=== PATIENT | female | born 1935 | race Caucasian/White ===

== ENCOUNTER 2016-08-24 14:37 | Inpatient (IN) | payer MEDICARE, BC ==
[2016-08-24] MEDS ORDERED: NS + KCl 20mEq/L 1,000 ML IV SCH (15:00)
[2016-08-24] MEDS: Sodium Chloride 1 GM Tab PO SCH ×2 (15:28→20:23)
[2016-08-24] MEDS: Potassium Chloride 20 MEQ Tab.ER PO SCH (15:28)
[2016-08-24] MEDS ORDERED: Nitroglycerin 0.4 MG Tab.SL SL PRN (19:00)
[2016-08-24] MEDS ORDERED: Lidocaine 2% 100 MG/5 ML Syringe IVPUSH PRN (19:00)
[2016-08-24] MEDS ORDERED: EPINEPHrine 1:10,000 1 MG/10 ML Syringe IVPUSH PRN (19:00)
[2016-08-24] MEDS ORDERED: Atropine 0.1 MG/ML 10 ML Syringe IVPUSH PRN (19:00)
[2016-08-24] MEDS ORDERED: Sodium Chloride 0.9% 1,000 ML IV SCH (19:45)
[2016-08-24] MEDS: Calcium Citrate/Vitamin D3 315 MG-250 Unit Tab PO SCH (20:23)
[2016-08-24] MEDS: Simvastatin 20 MG Tab PO SCH (20:23)
[2016-08-24] MEDS: Aspirin 81 MG Tab.EC PO SCH (20:23)
[2016-08-24] MEDS: ALPRAZolam 0.25 MG Tab PO PRN (21:52)
[2016-08-25] MEDS: Omeprazole 20 MG Cap.CR PO SCH (06:20)
[2016-08-25 08:08] LABS: CHLORIDE,CL 94 mmol/L (98-115); SODIUM,NA 132 mmol/L (136-145)
[2016-08-25] MEDS: Sodium Chloride 1 GM Tab PO SCH (10:08)
[2016-08-25] MEDS: Potassium Chloride 20 MEQ Tab.ER PO SCH (10:08)
[2016-08-25] MEDS: Cetirizine 10 MG Tab PO SCH (10:09)
[2016-08-25] MEDS: Diclofenac Sodium 75 MG Tab.EC PO SCH ×2 (10:34)
[2016-08-25] MEDS ORDERED: Sodium Chloride 0.9% 500 ML IV SCH (11:00)
--- NOTE | 2016-08-25 12:43 | PN ---
08/25/2016 PATIENT NAME: SYLVIA CERNA CHIEF COMPLAINT: Does feel better, less weak today, sodium level improved to 132. BRIEF HISTORY: This 80-year-old female was admitted from the [facility] yesterday. She had actually came in for preoperative exam due to pending right knee total replacement. She is to have this in two weeks. However, it was noticed on her exam that she did have a low sodium of 116 with symptomatic weakness. The patient had recently returned from [place] when arising a couple of weeks ago and she had not seen a medical provider except for [facility] for chronic back pain, which she states has improved quite a bit. She does have some intermittent depression likely due to her chronic medical conditions with her knees and recent jaw surgery. She was to be started on SSRI yesterday; however, that was on hold on admission due to low sodium level. PHYSICAL EXAMINATION: VITAL SIGNS: Temperature is 97.1, orthostatics are negative, heart rate 74, blood pressure 114/68, O2 sats are 100, and respiratory rate 16. GENERAL: She is in no acute distress. She is slightly tearful this morning. Does complain of a mild cough. NECK: Normal range of motion. No thyromegaly. CARDIOVASCULAR: Regular rate and rhythm. No murmur. CHEST: Clear to auscultation. EXTREMITIES: She has no edema. LABORATORY DATA: This morning, sodium increased to 132, potassium 3.3, creatinine and BUN are normal. Calcium normal. AST, ALT, alkaline phosphatase, and albumin all normal. She is on a fluid restriction of 1000 mL per day. NSAIDs along with thiazide diuretic was held on admission. The patient stated she had this problem approximately four years ago. It appears that it was related to her thiazide diuretic at that time. She does have a history of hypertension. Thyroid was assessed in the clinic yesterday. Results are normal at 2.57. She did have a low potassium level of 3.1 with a low sodium of 116. Chest x-ray yesterday at [facility]: Lungs were clear. No pulmonary edema. Pending labs: Urine electrolytes, urine sodium, serum osmolality still pending. IMPRESSION AND PLAN: 1. 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 Continue monitoring her sodium level tomorrow. Potassium now normal. Fluid restriction 1000 mL. We will salt her food today. Hold her thiazide diuretics. Hold all NSAIDs. 2. Osteoarthritis. Discontinue all NSAIDs. Schedule Tylenol Extended Release. Add acetaminophen for osteoarthritis. 3. Hyperlipidemia. Lipid panel is pending. She is on Zocor. 4. Depression. We will hold off on SSRIs at this time. She does have some pending surgeries. She has an improved outlook. Had a long discussion with her this morning. 5. Gastroesophageal reflux disease. Continue with PPI. 6. Environmental allergies. She is on Singulair. We can discontinue her telemetry. We would like to keep the patient another overnight stay to monitor her ongoing electrolytes and labs are still pending. /[id number]/MODL
[2016-08-25] MEDS: Acetaminophen 500 MG Tab PO SCH ×2 (14:52→22:56)
[2016-08-25] MEDS ORDERED: Cholecalciferol (Vitamin D3) 1,000 Unit Tab PO SCH (21:00)
[2016-08-25] MEDS: Aspirin 81 MG Tab.EC PO SCH (21:19)
[2016-08-25] MEDS: Calcium Citrate/Vitamin D3 315 MG-250 Unit Tab PO SCH (21:20)
[2016-08-25] MEDS: Simvastatin 20 MG Tab PO SCH (21:20)
[2016-08-25] MEDS: ALPRAZolam 0.25 MG Tab PO PRN (22:24)
[2016-08-26] MEDS: Omeprazole 20 MG Cap.CR PO SCH (06:29)
[2016-08-26] MEDS: Acetaminophen 500 MG Tab PO SCH (06:29)
[2016-08-26 06:36] VITALS: BP 131/80
[2016-08-26 07:50] LABS: CHLORIDE,CL 95 mmol/L (98-115); SODIUM,NA 132 mmol/L (136-145)
[2016-08-26] MEDS: Potassium Chloride 20 MEQ Tab.ER PO SCH (08:16)
[2016-08-26] MEDS: Cetirizine 10 MG Tab PO SCH (08:16)
[2016-08-26] MEDS ORDERED: Montelukast 10 MG Tab PO PRN (09:27)
[2016-08-26] MEDS ORDERED: Denosumab 60 MG/1 ML Syringe SUBCUT SCH (09:30)
[2016-08-26] MEDS ORDERED: Diclofenac Sodium 75 MG Tab.EC PO SCH (09:30)
[2016-08-26] MEDS ORDERED: Levothyroxine 75 MCG Tab PO SCH (21:00)
--- NOTE | 2016-08-27 08:40 | DISCH ---
FINAL DIAGNOSES: 1. Hyponatremia, euvolemic, hypotonic, likely thiazide induced, rule out syndrome of inappropriate antidiuretic hormone secretion. Urine studies and serum osmolality studies still pending, they are mail outs if it is syndrome of inappropriate antidiuretic hormone secretion, likely renal component. 2. Osteoarthritis. 3. Hyperlipidemia. 4. Depression, holding off all SSRIs at this time. 5. Gastroesophageal reflux disease, continue with PPI. 6. Environmental allergies. HISTORY OF PRESENT ILLNESS: This very pleasant 80-year-old female was admitted from the [facility]. She had actually came in for preoperative physical exam due to pending right total knee replacement. She is supposed to have this in about 2 weeks. However, it was noted on exam for her to have a low sodium level around 118 with some symptomatic weakness. She has had this before a few years ago, and it was thought at that time, due to thiazide diuretics. She had recently returned from [place], and then a couple weeks ago, she had not seen a medical provider down there other than a pain clinic provider due to chronic back pain which she states has improved quite a bit. She did have some intermittent depression likely due to her chronic medical conditions and recent jaw surgery where they lacerated her side of her jaw. Due to low sodium level, she was admitted. HOSPITAL COURSE: The patient's hospital course was uneventful. She was placed on fluid restriction of 1000 mL a day. All NSAIDs were held, SSRIs were held, along with her thiazide diuretics. Her sodium level within 12 hours almost normalized at 132, it remained there. Potassium was replaced gently, it was normal on discharge at 3.5. Liver functions were normal. She had negative orthostatic vital signs; however, she was slightly low upon admission around 100 systolic. VITAL SIGNS ON DISCHARGE: Temperature 97.8, blood pressure 131/80, heart rate 78, respiratory rate 20, O2 sats 95%. Microbiology report none. Labs: TSH at [facility] was normal. Labs that are pending: Urine electrolytes, serum, urine, and osmolality studies. MEDICATION ADJUSTMENTS: All NSAIDs on hold, hold thiazide diuretics, hold SSRIs, and continue on all her other home medicines. DISPOSITION: The patient will be discharged from the hospital. She feels good. She is ready to be discharged. She is clinically stable. She will follow up with Mindy Costa next week. Continue with fluid restriction. Continue with medication adjustments as directed, report any weakness or lightheadedness with fluid restriction 1000 mL a day. She will need another preop physical next week. MEDICAL DECISION MAKIN minutes was spent on this discharge planning and process. RECOMMENDATIONS AT FOLLOWUP: Followup on labs from [facility] mail out. /[id number]/MODL
[2016-08-27] MEDS ORDERED: Non-Formulary Medication 1 Each (Ipratropium Bromide [Ipratropium Bromide] 2 SPRAY) NASBOTH SCH (09:00)
== END 2016-08-26 11:10 | disposition home or self-care (01) | DRG 641 ==
LOC: KA.MS 14:53
PROVIDERS: ADMIT Physician Assistant Medical; ATTEND Family Medicine
DX: E87.1 Hypo-osmolality and hyponatremia (principal); E78.5 Hyperlipidemia, unspecified; F32.9 Major depressive disorder, single episode, unspecified; K21.9 Gastro-esophageal reflux disease without esophagitis; E87.6 Hypokalemia; I10 Essential (primary) hypertension; M17.11 Unilateral primary osteoarthritis, right knee; M54.9 Dorsalgia, unspecified; G89.29 Other chronic pain; J30.1 Allergic rhinitis due to pollen; Z79.899 Other long term (current) drug therapy
CPT/HCPCS: 36415; 80048; 80053; 83930; 84300; A9270-GY; J3480

== ENCOUNTER 2016-10-10 12:03 | Emergency (ER) | payer MEDICARE, BC ==
[2016-10-10] MEDS ORDERED: Ondansetron 4 MG/2 ML SDV IVPUSH ONE (12:16)
[2016-10-10] MEDS ORDERED: Sodium Chloride 0.9% 1,000 ML IV ONE (12:16)
[2016-10-10 12:32] VITALS: BP 144/69
[2016-10-10 12:41] LABS: CHLORIDE,CL 99 mmol/L (98-115); SODIUM,NA 135 mmol/L (136-145)
[2016-10-10] MEDS ORDERED: Loperamide 2 MG Cap PO ONE (12:51)
[2016-10-10] MEDS ORDERED: Ondansetron 4 MG Tab.DIS ONE (13:47)
--- NOTE | 2016-10-10 13:54 | EDM.PDOC ---
ED HPI GENERAL MEDICAL PROBLEM - General Chief Complaint: Gastrointestinal Problem Stated Complaint: DIARRHEA, NAUSEA Time Seen by Provider: 10/10/16 12:20 Source of Information: Reports: Patient History Limitations: Reports: No Limitations - History of Present Illness INITIAL COMMENTS - FREE TEXT/NARRATIVE: Kelsi is a very pleasant 81-year-old female who has felt nauseated and has had continual diarrhea over the last 24-36 hours. She's been trying some Imodium without relief. She has not had much appetite states that her appetite has not been great since she's had her knee replacement. She has felt nauseated and had one episode of emesis yesterday. She has not had any further vomiting episodes. She does have a history of chronic hyponatremia and had electrolyte replacement with IV fluids and sodium prior to her surgery. She does notice a little bit abdominal cramping but denies significant pain or guarding. She denies any fever or chills. He denies chest pain or shortness of breath. He denies any sinus pressure but did have a sore throat a couple of days ago and a mild cough. She feels that this has resolved. She denies any ear fullness or pain. She felt she better come in to the ER for fluid replacement and to make sure that she does not have electrolyte imbalance. Onset: Gradual Onset Date: 10/09/16 Duration: Hour(s): Location: Reports: Abdomen Quality: Reports: Ache Severity: Moderate Improves with: Reports: Medication Worsens with: Reports: None Associated Symptoms: Reports: Loss of Appetite, Malaise, Nausea/Vomiting. 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 Medication(s) (Imodium) - Related Data Allergies Allergy/AdvReac Type Severity Reaction Status Date / Time Penicillins Allergy Other Verified 10/10/16 13:34 Home Meds: Home Meds Aspirin [Halfprin] 81 mg PO BEDTIME 08/24/16 [History] Calcium Citrate/Vitamin D2 [Mele-Citrate Plus Vitamin D Tab] 1 each PO BEDTIME [History] Cetirizine HCl [Zyrtec] 10 mg PO DAILY 08/24/16 [History] Cholecalciferol (Vitamin D3) [Vitamin D3] 2,000 unit PO BEDTIME 08/24/16 [ History] Denosumab [Prolia] 60 mg SUBCUT Q6M 08/24/16 [History] Ipratropium [facility] 2 spray NASBOTH DAILY PRN 08/24/16 [History] Levothyroxine 37.5 mcg PO BEDTIME 08/24/16 [History] Montelukast Sodium [Singulair] 10 mg PO DAILY PRN 08/24/16 [History] Omeprazole 40 mg PO ACBREAKFAST 08/24/16 [History] Simvastatin [Zocor] 20 mg PO BEDTIME 08/24/16 [History] Past Medical History 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: Musculoskeletal History: Reports: Arthritis Endocrine/Metabolic History: Reports: Hypothyroidism Other Oncologic History: skin cancer - Infectious Disease History Infectious Disease History: Reports: Measles, Mumps, Rubella - Past Surgical History HEENT Surgical History: Reports: Tonsillectomy GI Surgical History: Reports: Colonoscopy Social & Family History - Family History Family Medical History: Noncontributory - Tobacco Use Smoking Status *Q: Never Smoker - Recreational Drug Use Recreational Drug Use: No ED ROS GENERAL - Review of Systems Review Of Systems: See Below Constitutional: Reports: Malaise HEENT: Reports: Glasses. Denies: Ear Pain, Eye Pain, Sinus Problem, Throat Pain , Throat Swelling, Vertigo Respiratory: Reports: Cough. Denies: Shortness of Breath, Sputum, Hemoptysis Cardiovascular: Denies: Chest Pain, Edema, Lightheadedness, Palpitations, Syncope Endocrine: Reports: No Symptoms GI/Abdominal: Reports: Abdominal Pain (cramping), Diarrhea, Decreased Appetite, Nausea, Vomiting : Reports: No Symptoms Musculoskeletal: Reports: Joint Pain (right knee status post total knee arthroplasty), Joint Swelling (right knee) Skin: Reports: No Symptoms Neurological: Reports: No Symptoms Psychiatric: Reports: No Symptoms Hematologic/Lymphatic: Reports: Anemia Immunologic: Reports: No Symptoms ED EXAM, GI/ABD - Physical Exam Exam: See Below Exam Limited By: No Limitations General Appearance: Alert, WD/WN, No Apparent Distress Eyes: Bilateral: Normal Appearance, EOMI Ears: Normal External Exam, Normal Canal, Hearing Grossly Normal, Normal TMs Nose: Normal Inspection, Normal Mucosa, No Blood Throat/Mouth: Normal Inspection, Normal Lips, Normal Teeth, Normal Gums, Normal Oropharynx, Normal Voice, No Airway Compromise Head: Atraumatic, Normocephalic Neck: Normal Inspection, Supple. No: Lymphadenopathy (L), Lymphadenopathy (R) Respiratory/Chest: No Respiratory Distress, Lungs Clear Cardiovascular: Normal Peripheral Pulses, Regular Rate, Rhythm, Systolic Murmur GI/Abdominal: Normal Bowel Sounds, Soft, Non-Tender, No Distention, No Mass. No : Guarding, Rebound, Rigidity Extremities: Normal Inspection, No Pedal Edema, Limited Range of Motion (right knee, well-healed incision, motion coming along nicely following knee replacement) Neurological: Alert, Oriented, Normal Cognition, No Motor/Sensory Deficits Psychiatric: Normal Affect, Normal Mood Skin Exam: Warm, Dry, Intact, Normal Color, No Rash Lymphatic: No Adenopathy Course - Vital Signs Last Recorded V/S: Last Vital Signs Temp 98.6 F 10/10/16 12:05 Pulse 80 10/10/16 12:05 Resp 18 10/10/16 12:05 BP 144/69 H 10/10/16 12:05 Pulse Ox 95 10/10/16 12:05 - Orders/Labs/Meds Labs: Laboratory Tests 10/10/16 10/10/16 Range/Units 12:15 12:15 WBC 5.6 (5.0-10.0) 10^3/uL RBC 3.56 L (3.80-5.50) 10^6/uL Hgb 11.5 L (12.0-16.0) g/dL Hct 33.9 L (37.0-47.0) % MCV 95.1 H (82.0-92.0) fL MCH 32.2 H (27.0-31.0) pg MCHC 33.8 (32.0-36.0) g/dL RDW 14.3 (11.5-14.5) % Plt Count 390 H (150-300) 10^3/uL MPV 6.1 L (7.4-10.4) fL Neut % (Auto) 71.7 H (50.0-70.0) % Lymph % (Auto) 19.3 L (20.0-40.0) % Howell % (Auto) 6.9 (2.0-8.0) % Eos % (Auto) 1.6 (1.0-3.0) % Baso % (Auto) 0.5 (0.0-1.0) % Neut # (Auto) 4.0 (2.5-7.0) 10^3/uL Lymph # (Auto) 1.1 (1.0-4.0) 10^3/uL Howell # (Auto) 0.4 (0.1-0.8) 10^3/uL Eos # (Auto) 0.1 (0.1-0.3) 10^3/uL Baso # (Auto) 0.0 (0.0-0.1) 10^3/uL Sodium 135 L (136-145) mmol/L Potassium 4.0 (3.3-5.3) mmol/L Chloride 99 (98-115) mmol/L Carbon Dioxide 23.3 (21.0-32.0) mmol/L BUN 12 (6-25) mg/dL Creatinine 0.66 (0.51-1.17) mg/dL Est Cr Clr Drug Dosing TNP Estimated GFR (MDRD) > 60 mL/min Glucose 106 (70-110) mg/dL Calcium 8.8 (8.7-10.3) mg/dL Total Bilirubin 0.7 (0.2-1.0) mg/dL AST 22 (15-37) U/L ALT 18 (12-78) U/L Alkaline Phosphatase 63 (46-116) IU/L Total Protein 7.6 (6.4-8.2) g/dL Albumin 3.71 (3.00-4.80) g/dL Meds: Medications Discontinued Medications Generic Name Dose Route Start Last Admin Trade Name Marcusq PRN Reason Stop Dose Admin Sodium Chloride 1,000 mls @ 999 mls/hr 10/10/16 12:16 10/10/16 12:29 Normal Saline IV 10/10/16 13:16 999 mls/hr .BOLUS ONE Administration Loperamide HCl 4 mg 10/10/16 12:51 10/10/16 13:30 Imodium PO 10/10/16 12:52 4 mg ONETIME ONE Administration Ondansetron HCl 4 mg 10/10/16 12:16 10/10/16 12:28 Zofran IVPUSH 10/10/16 12:17 4 mg ONETIME ONE Administration - Re-Assessments/Exams Free Text/Narrative Re-Assessment/Exam: 10/10/16 14:02 Patient given 1 L of normal saline and Zofran 4 mg IV. Nausea has improved. Patient has not had the urge to feel bowel movement or stomach upset during her stay. She feels overall better with a liter of fluids and Zofran. Departure - Departure Time of Disposition: 14:03 Disposition: Home, Self-Care 01 Clinical Impression: Diarrhea, Mild dehydration - Discharge Information Instructions: Diarrhea, Adult, Viral Gastroenteritis, Adult, [id number] Referrals: Mark Rayo MD [Primary Care Provider] - Forms: ED Department Discharge Additional Instructions: 1. Imodium 2 mg tabs every 4 hours as needed for continued diarrhea. 2. Encouraged to push fluids. 3. Keep your diet [place] but encouraged to push patient to eat for nourishment. 4. Zofran 4 mg ODT as needed for nausea. 5. Followup with your primary care next week if you don't feel your symptoms are improving. - Assessment/Plan Assessment:: 1. Diarrhea 2. Mild dehydration 3. Mild gastroenteritis Plan: 1. Zofran 4 mg ODT every 6 hours when necessary for nausea 2. Continue with the home Imodium as needed for diarrhea 3. Encourage oral hydration. 4. Encouraged eating for nourishment. We discussed a bland diet such as toast and peanut butter for calories. 5. If your symptoms persist encourage followup with your primary care next week.
== END 2016-10-10 13:55 | disposition home or self-care (01) ==
LOC: KA.ED 12:03
DX: E86.0 Dehydration (principal); M19.90 Unspecified osteoarthritis, unspecified site; Z79.82 Long term (current) use of aspirin; Z79.899 Other long term (current) drug therapy; Z98.890 Other specified postprocedural states
CPT/HCPCS: 80053; 85025; 96361; 96374; 99284; A9270; J2405; J7030

== ENCOUNTER 2024-08-28 08:08 | Day surgery (SDC) | payer MEDICARE, BC ==
[~2024-08-28 08:08] MED LIST: Sodium Chloride 0.9% 10 ML Syringe FLUSH PRN
[2024-08-28] MEDS ORDERED: Rocuronium 50 MG/5 ML Vial IV ONE (08:09)
[2024-08-28] MEDS ORDERED: Succinylcholine 200 MG/10 ML MDV IV ONE (08:09)
[2024-08-28] MEDS ORDERED: Ondansetron 4 MG/2 ML SDV IV ONE (08:09)
[2024-08-28] MEDS ORDERED: fentaNYL 250 MCG/5 ML SDV ONE (08:12)
[2024-08-28] MEDS ORDERED: Dexamethasone 4 MG/ML SDV ONE (08:13)
[2024-08-28] MEDS ORDERED: Propofol 200 MG/20 ML SDV ONE (08:13)
[2024-08-28] MEDS ORDERED: Midazolam 1 MG/ML 2 ML SDV ONE (08:13)
[2024-08-28] MEDS ORDERED: Sodium Chloride 0.9% 100 ML ONE (08:13)
[2024-08-28] MEDS: Lactated Ringers 1,000 ML IV SCH (08:39)
[2024-08-28] MEDS ORDERED: ceFAZolin 1 GM Vial ONE ×2 (09:04→09:54)
[2024-08-28] MEDS ORDERED: Bupivacaine 0.5%/EPINEPHrine 1:200,000 10 ML SDV ONE ×2 (09:12→10:37)
[2024-08-28] MEDS ORDERED: Bacitracin/Neomycin/Polymyxin B Oint 0.9 GM U/D Packet ONE ×2 (09:13)
[2024-08-28] MEDS ORDERED: Lactated Ringers 1,000 ML ONE (09:46)
[2024-08-28] MEDS ORDERED: Water For Injection, Sterile 20 ML ONE (09:55)
[2024-08-28] MEDS: ceFAZolin 1 GM Vial ONE ×2 (09:58)
[2024-08-28] MEDS: Bupivacaine 0.5%/EPINEPHrine 1:200,000 50 ML MDV INFILT ONE (09:59)
[2024-08-28] MEDS: Bacitracin/Neomycin/Polymyxin B Oint 0.9 GM U/D Packet TOP ONE (10:00)
[2024-08-28] MEDS ORDERED: Sugammadex Sodium 200 MG/2 ML VIAL IV ONE (11:36)
[2024-08-28] MEDS: fentaNYL 100 MCG/2 ML SDV IVPUSH ONE (12:45)
[2024-08-28] MEDS: Acetaminophen/HYDROcodone 325-5 MG Tab PO ONE (14:37)
[2024-08-28 17:52] VITALS: BP 122/65; PULSE 82
== END 2024-08-28 15:52 | disposition home or self-care (01) ==
LOC: KA.SDS 08:08
PROVIDERS: ATTEND Surgery
DX: K40.90 Unilateral inguinal hernia, without obstruction or gangrene, not specified as recurrent (principal); K43.2 Incisional hernia without obstruction or gangrene; I10 Essential (primary) hypertension; E03.9 Hypothyroidism, unspecified; Z88.0 Allergy status to penicillin; Z88.8 Allergy status to other drugs, medicaments and biological substances; Z79.899 Other long term (current) drug therapy; Z79.890 Hormone replacement therapy
CPT/HCPCS: 49505; 49593; A9270; J0330; J0690; J1100; J2250; J2405; J2704; J3010; J3490; J7120